=== PATIENT | male | born 1985 ===

== ENCOUNTER 2016-07-30 15:31 | Emergency (ER) | payer OTHER ==
[2016-07-30 15:50] VITALS: BP 137/85; PULSE 74; TEMP 98.7; O2SAT 99
[2016-07-30 15:51] VITALS: BMI 38.0
[2016-07-30 15:56] VITALS: RESP 18
--- NOTE | 2016-07-30 16:00 | ED PDOC ---
HPI: Psych/Substance Abuse Time Seen by Provider: 07/30/16 15:58 Chief Complaint (Nursing): Anxiety Chief Complaint (Provider): Anxiety History Per: Patient Additional Complaint(s): Pt is a 31 yo male, PMH of Anxiety, presents to ED for crisis eval. Pt asymptomatic at this time, reports coming to ED because he wants a Doctor to follow up with outpt. Past Medical History Reviewed: Nursing Documentation, Vital Signs Vital Signs: Last Vital Signs Temp 98.7 F 07/30/16 15:51 Pulse 74 07/30/16 15:51 Resp 18 07/30/16 15:51 BP 137/85 07/30/16 15:51 Pulse Ox 99 07/30/16 15:51 - Medical History PMH: Anxiety, Depression, Post Traumatic Stress Disorder (per girlfriend) Denies: Diabetes, Hepatitis, HIV, HTN, Chronic Kidney Disease, Seizures, Sexually Transmitted Disease - Surgical History Surgical History: No Surg Hx - Family History Family History: States: Unknown Family Hx - Immunization History Hx Tetanus Toxoid Vaccination: No (UTD) - Home Medications Home Medications: Ambulatory Orders Medication Instructions Recorded oxyCODONE/Acetaminophen [Percocet 1 tab PO Q6H PRN #4 tab 08/01/16 5/325 mg Tab] - Allergies Allergies/Adverse Reactions: Allergies Allergy/AdvReac Type Severity Reaction Status Date / Time acetaminophen [From Vicodin] Allergy RASH Verified 08/01/16 20:03 hydrocodone bitartrate Allergy RASH Verified 08/01/16 20:03 [From Vicodin] Penicillins Allergy RASH Verified 08/01/16 20:03 tramadol Allergy RASH Verified 08/01/16 20:03 Review of Systems ROS Statement: Except As Marked, All Systems Reviewed And Found Negative Physical Exam - Reviewed Nursing Documentation Reviewed: Yes Vital Signs Reviewed: Yes - Physical Exam Appears: Positive for: Well, Non-toxic, No Acute Distress Head Exam: Positive for: ATRAUMATIC, NORMAL INSPECTION, NORMOCEPHALIC Skin: Positive for: Normal Color, Warm, DRY Eye Exam: Positive for: EOMI, Normal appearance, PERRL ENT: Positive for: Normal ENT Inspection Neck: Positive for: Normal, Painless ROM Cardiovascular/Chest: Positive for: Regular Rate, Rhythm Respiratory: Positive for: CNT, Normal Breath Sounds Gastrointestinal/Abdominal: Positive for: Normal Exam, Bowel Sounds, Soft Back: Positive for: Normal Inspection Extremity: Positive for: Normal ROM Neurologic/Psych: Positive for: Alert, Oriented - ECG O2 Sat by Pulse Oximetry: 99 Medical Decision Making Medical Decision Making: Crisis presented Pt with outPt follow up options Disposition - Clinical Impression Clinical Impression: Anxiety - Patient ED Disposition Is Patient to be Admitted: No - Disposition Disposition: Routine/Home Disposition Time: 16:20 Condition: STABLE Instructions: Anxiety (ED)
== END 2016-07-30 16:53 | disposition home or self-care (01) ==
LOC: H.ER 15:31
DX: F41.9 Anxiety disorder, unspecified (principal)

== ENCOUNTER 2016-10-19 10:35 | Emergency (ER) | payer MEDICAID, OTHER ==
[2016-10-19 10:35] VITALS: BMI 38.0
[2016-10-19 10:55] VITALS: RESP 19; TEMP 97; O2SAT 100
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
[2016-10-19 11:10] VITALS: BP 156/94; PULSE 104
== END 2016-10-19 14:05 | disposition home or self-care (01) ==
LOC: H.ER 10:35
DX: Z76.0 Encounter for issue of repeat prescription (principal); F32.9 Major depressive disorder, single episode, unspecified; F43.10 Post-traumatic stress disorder, unspecified; Z88.0 Allergy status to penicillin

== ENCOUNTER 2016-11-02 15:20 | Emergency (ER) | payer OTHER ==
[2016-11-02 15:21] VITALS: BMI 38.0
[2016-11-02 15:30] VITALS: BP 155/83; PULSE 74; RESP 18; TEMP 98.1; O2SAT 99
[2016-11-02] MEDS ORDERED: Lidocaine 1% Inj (20ml) IJ ONE (15:33)
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
[2016-11-02] MEDS ORDERED: Lidocaine 1% Inj (20ml) ONE (15:53)
--- NOTE | 2016-11-02 17:09 | RAD ---
PROCEDURE: Right middle finger radiographs. HISTORY: trauma COMPARISON: Correlation made with prior radiographs of the right wrist dated 01/11/2015 TECHNIQUE: AP radiograph of the right hand, as well as spot oblique and lateral images of right middle finger were obtained. FINDINGS: RIGHT MIDDLE FINGER: The current study reveals a large defect within the dorsal soft tissues along the volar margin at extending from the level of the distal aspect middle phalanx and proximal aspect distal phalanx. Apparent gauze-bandages presumably fills the defect. . No definitive radiographic evidence of acute displaced fracture however the defect appears to extend to the dorsal cortical surfaces. JOINTS: Normal. SOFT TISSUES: As above OTHER FINDINGS: None. IMPRESSION: Large defect within the dorsal soft tissues along the volar margin at extending from the level of the distal aspect middle phalanx and proximal aspect distal phalanx. Apparent gauze-bandages presumably fills the defect. . No definitive radiographic evidence of acute displaced fracture however the defect appears to extend to the dorsal cortical surfaces.
== END 2016-11-02 17:06 | disposition home or self-care (01) ==
LOC: H.ER 15:20
DX: S61.212A Laceration without foreign body of right middle finger without damage to nail, initial encounter (principal); V19.9XXA Pedal cyclist (driver) (passenger) injured in unspecified traffic accident, initial encounter; Y93.55 Activity, bike riding

== ENCOUNTER 2016-11-10 16:47 | Emergency (ER) | payer MEDICAID, OTHER ==
[2016-11-10 16:48] VITALS: BMI 38.0
[2016-11-10 16:53] VITALS: BP 141/79; PULSE 69; RESP 16; TEMP 98.5; O2SAT 99
--- NOTE | 2016-11-10 17:29 | ED PDOC ---
HPI: Wound Care - HPI Time Seen by Provider: 11/10/16 16:52 Chief Complaint (Nursing): Suture/Staple Removal Chief Complaint (Provider): Suture/Staple Removal History Per: Patient Exam Limitations: no limitations Onset/Duration Of Symptoms: Days (x9) Current Symptoms Are (Timing): Better Additional Complaint(s): Tyrone Benavides is a 31 year old male who presents to the emergency department for suture replacement of right hand wound placed on 11/06/16. Denied pain or active bleeding. Patient stated he is currently taking prescribed antibiotics with 2 days left. PMD: none provided Past Medical History Reviewed: Historical Data, Nursing Documentation, Vital Signs Vital Signs: Last Vital Signs Temp 98.5 F 11/10/16 16:49 Pulse 69 11/10/16 16:49 Resp 16 11/10/16 16:49 BP 141/79 11/10/16 16:49 Pulse Ox 99 11/10/16 16:49 - Medical History PMH: Anxiety, Depression, Post Traumatic Stress Disorder Denies: Diabetes, Hepatitis, HIV, HTN, Chronic Kidney Disease, Seizures, Sexually Transmitted Disease - Family History Family History: States: Unknown Family Hx - Social History Current smoker - smoking cessation education provided: Yes Ex-Smoker (has not smoked in the last 12 months): No Alcohol: None - Immunization History Hx Tetanus Toxoid Vaccination: No (UTD) - Home Medications Home Medications: Ambulatory Orders Medication Instructions Recorded oxyCODONE/Acetaminophen [Percocet 1 tab PO Q6H PRN #4 tab 08/01/16 5/325 mg Tab] Lorazepam [Ativan] 0.5 mg PO BID PRN #10 tab 10/19/16 Zolpidem [Ambien] 5 mg PO HS #5 tab 10/19/16 Clindamycin [Cleocin] 300 mg PO Q8 #21 cap 11/02/16 - Allergies Allergies/Adverse Reactions: Allergies Allergy/AdvReac Type Severity Reaction Status Date / Time acetaminophen [From Vicodin] Allergy RASH Verified 08/01/16 20:03 hydrocodone bitartrate Allergy RASH Verified 08/01/16 20:03 [From Vicodin] Penicillins Allergy RASH Verified 08/01/16 20:03 tramadol Allergy RASH Verified 08/01/16 20:03 Review of Systems ROS Statement: Except As Marked, All Systems Reviewed And Found Negative Musculoskeletal: Positive for: Hand Pain (right hand wound). Negative for: Other (active bleeding/pain) Physical Exam - Reviewed Nursing Documentation Reviewed: Yes Vital Signs Reviewed: Yes - Physical Exam Appears: Positive for: Well, Non-toxic, No Acute Distress Head Exam: Positive for: ATRAUMATIC, NORMAL INSPECTION, NORMOCEPHALIC Respiratory: Positive for: Normal Breath Sounds, Accessory Muscle Use. Negative for: Decreased Breath Sounds, Respiratory Distress Extremity: Positive for: Normal ROM (right hand digits), Deformity (mild erythema, scabbed over 3 sutures of right hand wound). Negative for: Tenderness , Swelling Neurologic/Psych: Positive for: Alert, Oriented - ECG O2 Sat by Pulse Oximetry: 99 (RA) Pulse Ox Interpretation: Normal Medical Decision Making Medical Decision Making: Initial Impression: Wound check Initial Plan: * Suture replaced Time: 1700 --3 sutures applied to affected right 3rd digit. --Patient tolerated procedure well with no problems. Scribe Attestation: Documented by Tish Ortiz, acting as a scribe for Tita Thomas Provider Scribe Attestation: All medical record entries made by the Scribe were at my direction and personally dictated by me. I have reviewed the chart and agree that the record accurately reflects my personal performance of the history, physical exam, medical decision making, and the department course for this patient. I have also personally directed, reviewed, and agree with the discharge instructions and disposition. Disposition - Clinical Impression Clinical Impression: Removal of suture - Patient ED Disposition Is Patient to be Admitted: No - Disposition Disposition: Routine/Home Disposition Time: 17:35 Condition: STABLE Instructions: Stitches Removal (ED) Forms: [employer] (Sinhala)
== END 2016-11-10 17:29 | disposition home or self-care (01) ==
LOC: H.ER 16:47
DX: Z48.02 Encounter for removal of sutures (principal)

== ENCOUNTER 2017-06-29 06:57 | Emergency (ER) | payer MEDICAID ==
[2017-06-29 06:57] VITALS: BMI 38.0
--- NOTE | 2017-06-29 07:25 | ED PDOC ---
HPI: Psych/Substance Abuse Time Seen by Provider: 06/29/17 07:07 Chief Complaint (Nursing): Substance Abuse Chief Complaint (Provider): Substance Abuse History Per: Patient, EMS History/Exam Limitations: no limitations Onset/Duration Of Symptoms: Hrs Current Symptoms Are (Timing): Still Present Suicide/Self Injury Attempted (Context): None Additional Complaint(s): 32 year old male brought to the ED via EMS for substance abuse evaluation. As per EMS patient was found unresponsive in his home. Police officers administered Narcan 6 mg intranasal, patient became responsive on scene. However , patient denies drug use and admits to drinking 13 beers last night before he passed out and woken up by EMS. PMD: Patient cannot recall name of Provider. Past Medical History Reviewed: Historical Data, Nursing Documentation, Vital Signs Vital Signs: Last Vital Signs Temp 98 F 06/29/17 07:05 Pulse 90 06/29/17 07:05 Resp 16 06/29/17 07:05 BP Pulse Ox 98 06/29/17 07:05 - Medical History PMH: Anxiety, Depression, Post Traumatic Stress Disorder Denies: Diabetes, Hepatitis, HIV, HTN, Chronic Kidney Disease, Seizures, Sexually Transmitted Disease - Surgical History Surgical History: No Surg Hx - Family History Family History: States: Unknown Family Hx - Immunization History Hx Tetanus Toxoid Vaccination: No (UTD) - Home Medications Home Medications: Ambulatory Orders Medication Instructions Recorded oxyCODONE/Acetaminophen [Percocet 1 tab PO Q6H PRN #4 tab 08/01/16 5/325 mg Tab] Lorazepam [Ativan] 0.5 mg PO BID PRN #10 tab 10/19/16 Zolpidem [Ambien] 5 mg PO HS #5 tab 10/19/16 Clindamycin [Cleocin] 300 mg PO Q8 #21 cap 11/02/16 Naloxone HCl [Narcan] 1 spray NS ONCE PRN #1 spray 06/29/17 - Allergies Allergies/Adverse Reactions: Allergies Allergy/AdvReac Type Severity Reaction Status Date / Time acetaminophen [From Vicodin] Allergy RASH Verified 08/01/16 20:03 hydrocodone bitartrate Allergy RASH Verified 08/01/16 20:03 [From Vicodin] Penicillins Allergy RASH Verified 08/01/16 20:03 tramadol Allergy RASH Verified 08/01/16 20:03 Review of Systems ROS Statement: Except As Marked, All Systems Reviewed And Found Negative Psych: Positive for: Other (ETOH intoxication, possible substance abuse) Physical Exam - Reviewed Nursing Documentation Reviewed: Yes Vital Signs Reviewed: Yes - Physical Exam Appears: Positive for: Non-toxic, No Acute Distress Head Exam: Positive for: ATRAUMATIC, NORMOCEPHALIC Skin: Positive for: Normal Color, Warm, Dry Eye Exam: Positive for: EOMI, Normal appearance, PERRL ENT: Positive for: Normal ENT Inspection Neck: Positive for: Normal, Painless ROM, Supple Cardiovascular/Chest: Positive for: Regular Rate, Rhythm. Negative for: Murmur Respiratory: Positive for: Normal Breath Sounds. Negative for: Respiratory Distress Gastrointestinal/Abdominal: Positive for: Normal Exam, Soft. Negative for: Tenderness Back: Positive for: Normal Inspection. Negative for: L CVA Tenderness, R CVA Tenderness, Vertebral Tenderness Extremity: Positive for: Normal ROM. Negative for: Pedal Edema, Deformity Neurologic/Psych: Positive for: Alert, Oriented (x3 ) - ECG O2 Sat by Pulse Oximetry: 98 (RA) Pulse Ox Interpretation: Normal Medical Decision Making Medical Decision Making: Time: 720 Impression: ETOH intoxication, drug use Plan: -- Alcohol Serum -- Drug Screen, Urine -- Glucose, Blood, POC Time: 950 -- Drug screen came back positive for cocaine, marijuana, and opioids. -- Patient remained AAOX3 during ED observation, no complaints. -- Patient wishes to leave at this time. Scribe Attestation: Documented by Bakari Franklin, acting as a scribe for Dr. Erica Garcia MD. Provider Scribe Attestation: All medical record entries made by the Scribe were at my direction and personally dictated by me. I have reviewed the chart and agree that the record accurately reflects my personal performance of the history, physical exam, medical decision making, and the department course for this patient. I have also personally directed, reviewed, and agree with the discharge instructions and disposition. Disposition - Clinical Impression Clinical Impression: Opiate abuse, continuous - Disposition Referrals: [facility] [Outside] Disposition: Routine/Home Disposition Time: 10:02 Condition: IMPROVED Prescriptions: Naloxone HCl [Narcan] 1 spray NS ONCE PRN #1 spray PRN Reason: Opiate Reversal Instructions: Drug Abuse and Drug Addiction (DC), Opioid Use Disorder Forms: [employer] (Mongolian)
[2017-06-29 09:34] LABS: BARBITURATES, UR NEGATIVE (NEGATIVE)
[2017-06-29 09:42] LABS: BENZODIAZEPINES, UR NEGATIVE (NEGATIVE); OPIATES, UR POSITIVE (NEGATIVE); PHENCYCLIDINE, UR NEGATIVE (NEGATIVE)
[2017-06-29 10:30] VITALS: RESP 14
[2017-06-29 11:32] VITALS: BP 124/81; PULSE 75; TEMP 97.9
[2017-06-30 10:43] VITALS: O2SAT 98
== END 2017-06-29 11:36 | disposition home or self-care (01) ==
LOC: H.ER 06:57
DX: F11.10 Opioid abuse, uncomplicated (principal); F10.129 Alcohol abuse with intoxication, unspecified; F32.9 Major depressive disorder, single episode, unspecified; F43.10 Post-traumatic stress disorder, unspecified; Z88.0 Allergy status to penicillin; Z88.5 Allergy status to narcotic agent